=== PATIENT | female | born 1980 | race Caucasian/White ===

== ENCOUNTER 2021-04-07 11:51 | Emergency (ER) | payer SELFPAY ==
[~2021-04-07] VITALS: Ht 172.7 cm; Wt 74.5 kg
[2021-04-07 12:03] VITALS: TEMP 98.7
[2021-04-07 13:22] VITALS: BP 117/79; PULSE 77
== END 2021-04-07 14:51 | disposition home or self-care (01) ==
LOC: COL.ER 11:51
DX: U07.1 COVID-19 (principal)

== ENCOUNTER 2022-08-20 13:42 | Emergency (ER) | payer SELFPAY ==
[~2022-08-20] VITALS: Ht 172.7 cm; Wt 75.0 kg
[2022-08-20 13:52] VITALS: BP 145/92
[2022-08-20] MEDS ORDERED: VALTREX 50500 MG/TAB PO (14:53)
[2022-08-20 15:01] VITALS: PULSE 88; TEMP 98.2
== END 2022-08-20 14:57 | disposition home or self-care (01) ==
LOC: COL.ER 13:42
DX: B02.8 Zoster with other complications (principal)

== ENCOUNTER 2023-02-26 12:10 | Emergency (ER) | payer BC ==
[~2023-02-26] VITALS: Ht 172.7 cm; Wt 79.5 kg
[~2023-02-26 12:10] MED LIST: VALTREX 50500 MG/TAB PO
[2023-02-26 12:16] VITALS: TEMP 97.8
[2023-02-26 14:35] LABS: HEMATOCRIT 43.6 % (37.0-47.0); HEMOGLOBIN 15.1 g/dl (12.5-16.0); MEAN CELL VOLUME 91 fl (80.0-100.0); MEAN CORPUSCULAR HEMOGLOBIN 31 pg (27-31); MEAN CORPUSCULAR HGB CONC 35 g/dl (33.0-37.0); MEAN PLATELET VOLUME 9.7 fl (7.4-10.4); PLATELET COUNT 321 K/mm3 (130-400); RED BLOOD COUNT 4.82 M/mm3 (4.10-5.30); REDCELL DISTRIBUTION WIDTH-CV 11.9 % (11.5-14.5)
[2023-02-26 14:36] LABS: COLLECTION METHOD CLEAN CATCH
[2023-02-26 14:48] LABS: ALBUMIN 3.4 gm/dL (3.5-5.0); BILIRUBIN,TOTAL 0.4 mg/dL (0.2-1.2); C-REACTIVE PROTEIN 0.02 mg/dL (0.00-0.50); CALCIUM 8.6 mg/dL (8.4-10.2); CREATININE, serum 0.66 mg/dL (0.57-1.11); POTASSIUM 3.6 mmol/L (3.5-4.5); TOTAL PROTEIN 6.2 gm/dL (6.2-8.1)
[2023-02-26 15:04] LABS: MUCOUS Present (NOT PRESENT); PH 7.5 (5.0-8.5); URINE APPEARANCE Clear (CLEAR/HAZY); URINE BLOOD Negative (NEGATIVE); URINE COLOR Yellow (YELLOW); URINE GLUCOSE Negative (NEGATIVE); URINE KETONE Negative (NEGATIVE); URINE NITRATE Negative (NEGATIVE); URINE PROTEIN(semi-quant) Negative (NEGATIVE); URINE RBC 0-2 /hpf (0-2)
[2023-02-26 15:07] LABS: BAND 2 % (0-10); EOSINOPHIL 1 % (0-4); LYMPHOCYTE 20 % (20.0-51.0); NEUTROPHILS 69 % (42.0-75.2); PLATELET ESTIMATE NORMAL (NORMAL)
[2023-02-26 17:25] VITALS: BP 138/85; PULSE 74
== END 2023-02-26 17:31 | disposition home or self-care (01) ==
LOC: COL.ER 12:10
PROVIDERS: Nurse Practitioner
DX: R10.31 Right lower quadrant pain (principal); D72.829 Elevated white blood cell count, unspecified; Z91.040 Latex allergy status
CPT/HCPCS: J7030; Q9967